=== PATIENT | female | born 1985 | race Caucasian/White ===

== ENCOUNTER 2017-08-25 23:00 | Emergency (ER) | payer SELFPAY ==
[~2017-08-25] VITALS: Ht 152.4 cm; Wt 59.0 kg
[2017-08-25 23:11] VITALS: Ht 152.4 cm; Wt 59.0 kg
[2017-08-26 00:10] VITALS: BP 108/70
== END 2017-08-26 00:10 | disposition home or self-care (01) ==
LOC: ED 23:00
DX: J11.1 Influenza due to unidentified influenza virus with other respiratory manifestations (principal)